=== PATIENT | male | born 1985 | race Caucasian/White ===

== ENCOUNTER 2019-01-19 11:05 | Inpatient (IN) ==
[2019-01-19] MEDS ORDERED: MAALOX PLUS LIQUID PO PRN (14:49)
[2019-01-19] MEDS ORDERED: SINEMET 25/100 PO PRN (14:49)
[2019-01-19] MEDS ORDERED: TUBERSOL ID ONE (14:49)
[2019-01-19] MEDS ORDERED: TYLENOL PO PRN (14:49)
[2019-01-19] MEDS ORDERED: SENOKOT PO PRN (14:49)
[2019-01-19] MEDS ORDERED: PHENOBARBITAL IV PRN (14:49)
[2019-01-19] MEDS ORDERED: IMODIUM PO PRN (14:49)
[2019-01-19] MEDS ORDERED: DULCOLAX PR PRN (14:49)
[2019-01-19] MEDS ORDERED: D5W 1,000 ML IV PRN (14:49)
[2019-01-19 15:26] LABS: HEMATOCRIT 49.8 % (42.0-52.0); HEMOGLOBIN 16.2 g/dL (14.0-18.0); MCH 27.5 PG (27-31); MCHC 32.5 g/dL (33-37); MCV 84.6 FL (81-99); MPV 10.6 FL (7.4-10.4); RBC 5.89 XMIL (4.7-6.1); RDW 14.6 % (11.5-14.5)
[2019-01-19 15:30] LABS: URINE SOURCE VOIDED
[2019-01-19 15:40] LABS: AMYLASE 62 U/L (20-200); LIPASE 20 U/L (13-60)
[2019-01-19 15:41] LABS: INR 1.03
[2019-01-19 15:43] LABS: AGAP 13; ALKALINE PHOSPHATASE 95 U/L (32-122); BUN 11 mg/dL (8-22); CALCIUM 10.5 mg/dL (8.8-10.2); CHLORIDE 99 mmol/L (98-107); COSMO 276; CREATININE 0.8 mg/dL (0.7-1.2); ESTIMATED GFR > 60; GLUCOSE 115 mg/dL (70-104); GOT 20 U/L (10-34); GPT 46 U/L (10-44); POTASSIUM 4.8 mmol/L (3.5-5.1); SODIUM 138 mmol/L (136-145); TCO2 26 mmol/L (25-35); TOTAL PROTEIN 9.1 g/dL (6.3-8.3)
[2019-01-19] MEDS: ZOFRAN IV PRN (15:50)
[2019-01-19 15:57] LABS: BILIRUBIN URINE NEGATIVE (NEGATIVE); BLOOD URINE NEGATIVE (NEGATIVE); CLARITY CLEAR (CLEAR); COLOR YELLOW; GLUCOSE URINE NEGATIVE (NEGATIVE); KETONE URINE TRACE mg/dL (NEGATIVE); LEUKOCYTES URINE TRACE (NEGATIVE); NITRITE URINE NEGATIVE (NEGATIVE); PROTEIN URINE TRACE mg/dL (NEGATIVE); UR AMPHETAMINES QUAL NONE DETECTED (NONE DETECT); UR BARBITUATES QUAL NONE DETECTED (NONE DETECT); UR BENZODIAZEPIN QUAL NONE DETECTED (NONE DETECT); UR CANNABINOIDS QUAL NONE DETECTED (NONE DETECT); UR COCAINE QUAL NONE DETECTED (NONE DETECT); UR METHADONE QUAL NONE DETECTED (NONE DETECT); UR METHAMPHETAMINE QUAL PRESUMPTIVE POSITIVE (NONE DETECT); UR OPIATES QUAL PRESUMPTIVE POSITIVE (NONE DETECT); UR OXYCODONE QUAL NONE DETECTED (NONE DETECT); UR PCP QUAL NONE DETECTED (NONE DETECT); UR PROPOXYPHENE QUAL NONE DETECTED (NONE DETECT); UR TCA QUAL NONE DETECTED (NONE DETECT); UROBILINOGEN URINE 1 mg/dL
[2019-01-19 16:01] LABS: URINE BACTERIA 1+ /HFP; URINE WBC <10 /HPF (<10)
[2019-01-19 16:02] LABS: URINE CAST NONE SEEN /LPF; URINE CRYSTAL NONE SEEN /HPF; URINE EPITHELIAL CELLS <10 /HPF (<10); URINE YEAST NONE SEEN /HPF
[2019-01-19] MEDS: NICODERM PATCH TD PRN (16:02)
[2019-01-19] MEDS: LIBRIUM PO PRN (16:02)
[2019-01-19] MEDS: ROBAXIN PO PRN ×2 (16:02→23:47)
[2019-01-19] MEDS: MOTRIN PO PRN (16:02)
[2019-01-19] MEDS: ATARAX PO PRN ×2 (18:04→23:48)
[2019-01-19] MEDS: BENTYL PO PRN (18:04)
[2019-01-19] MEDS: DESYREL PO PRN (20:16)
[2019-01-19] MEDS: ZOFRAN ODT PO PRN (20:16)
[2019-01-19] MEDS: SEROQUEL PO PRN (23:48)
[2019-01-20] MEDS: PROTONIX PO SCH (06:54)
[2019-01-20] MEDS: THERA M PLUS PO SCH (09:16)
[2019-01-20] MEDS: VITAMIN B-1 PO SCH (09:16)
[2019-01-20] MEDS: FOLIC ACID PO SCH (09:16)
[2019-01-20] MEDS: MOTRIN PO PRN (09:24)
[2019-01-20] MEDS: ZOFRAN ODT PO PRN ×2 (09:24→21:00)
[2019-01-20] MEDS: LIBRIUM PO PRN (09:24)
[2019-01-20] MEDS: ZOFRAN IV PRN ×2 (09:51→15:05)
--- NOTE | 2019-01-20 11:54 | PROGRESS NOTE ---
DATE: 01/20/2019 SUBJECTIVE: Patient notes overall he is feeling a little bit better. States he wants to continue trying to wean off everything and go to further inpatient treatment if possible. PHYSICAL EXAMINATION: Vital Signs: Reviewed. Temperature 97.9 degrees, pulse 94, respiratory rate 18, blood pressure 121/86. General: Patient is in no current respiratory distress. HEENT: Normocephalic. Neck: Supple. Cardiovascular: Regular rate. Chest: Clear. Abdomen: Soft. Extremities: Moves all extremities. Neurologic: No changes. ASSESSMENT: 1. Nausea, vomiting, abdominal pain. 2. Myalgias. 3. Paresthesias. 4. Paroxysmal sweating. 5. Opiate abuse withdrawal and stabilization. PLAN: We will continue to attempt to wean off of all substances so that he can go to further inpatient treatment. We will continue on Librium taper. Further orders as needed. Continue counseling. cc: Stuart Magallon MD
--- NOTE | 2019-01-20 12:31 | HISTORY AND PHYSICAL ---
CHIEF COMPLAINT: Nausea and vomiting. HISTORY OF PRESENT ILLNESS: The patient is a 33-year-old male who presented to [facility] secondary to nausea, vomiting, abdominal pain, and myalgias. States he has been using and abusing opiates. He wants to get his life back under control. States opiates have created relationship problems as well as financial and work problems. He has not been able to work the past 2 years. SOCIAL HISTORY: Patient is single. He is currently unemployed. Lives at home in [place]. PAST MEDICAL HISTORY: Untreated hepatitis C, multiple back surgeries, which is where his opiate use and abuse started. He has chronic anxiety and depression. MEDICATIONS: He is not currently on any medications. ALLERGIES: He has no known drug allergies. REVIEW OF SYSTEMS: CINA score is elevated at 15 secondary to nausea, frequent yawning, abdominal pain, cramping, and frequent diarrhea. He has had vomiting. He has had muscle aches with intermittent sweating, and has been moderately restless, fidgety, and anxious. He is unable to sit still. He has had paresthesias. Denies any headaches or blurred vision. Denies any focalized numbness, tingling, or weakness in his extremities. Denies any dysuria, frequency, or urgency. Denies any skin rashes, weight loss or weight gain. SUBSTANCE ABUSE HISTORY: The patient has been in treatment at [facility] for 2 weeks, and then went to [facility] in 2017 outpatient, and remained sober for a year and a half. He started alcohol at 21, currently rarely drinks. Tried marijuana at 16, rarely uses; used daily in high school. Started stimulants in his 20s, rarely uses those. Started hallucinogens in his 20s as well as inhalants, has not used since. Started opiates at 21, currently uses IV heroin frequently. FAMILY HISTORY: Noncontributory. PHYSICAL EXAMINATION: VITAL SIGNS: Reviewed. GENERAL: Patient is awake and alert. Currently, in no respiratory distress. HEENT: Normocephalic. NECK: Supple. CARDIOVASCULAR: Regular rate. CHEST: Clear. ABDOMEN: Soft and nondistended. EXTREMITIES: Moves all extremities. NEUROLOGIC: Patient is awake and alert. He is fidgety, anxious, and unable sit still and frequently moving about. LABORATORY: Labs are pending. ASSESSMENT: 1. Nausea and vomiting. 2. Abdominal pain. 3. Myalgias. 4. Paresthesias. 5. Paroxysmal sweating. 6. Paresthesias. 7. Opiate abuse withdrawal and stabilization. 8. History of hepatitis C. PLAN: We are going to admit the patient to the hospital, and place him on Librium taper. We will continue counseling. Hopefully, he can transition to further inpatient treatment. cc: Stuart Magallon MD
[2019-01-20] MEDS: LIBRIUM PO SCH ×3 (15:03→21:00)
[2019-01-20] MEDS: NICODERM PATCH TD PRN (16:01)
[2019-01-20] MEDS: SEROQUEL PO PRN (21:00)
[2019-01-20] MEDS: ROBAXIN PO PRN (21:00)
[2019-01-20] MEDS: ATARAX PO PRN (21:00)
[2019-01-21] MEDS: LIBRIUM PO SCH ×3 (03:10→17:03)
[2019-01-21] MEDS: PROTONIX PO SCH ×2 (05:59→10:27)
[2019-01-21] MEDS: ZOFRAN ODT PO PRN ×2 (10:25→16:41)
[2019-01-21] MEDS: FOLIC ACID PO SCH (10:26)
[2019-01-21] MEDS: THERA M PLUS PO SCH (10:26)
[2019-01-21] MEDS: VITAMIN B-1 PO SCH (10:26)
[2019-01-21] MEDS: ATARAX PO PRN (12:22)
--- NOTE | 2019-01-21 18:17 | PROGRESS NOTE ---
DATE: 01/21/2019 SUBJECTIVE: Patient notes that he is feeling okay. Denies any fevers. Denies any chills. OBJECTIVE: Temperature 98.7, pulse 89, respiratory rate 18, BP 137/83.General: Patient is awake, currently in no respiratory distress. HEENT: Normocephalic. Neck: Supple. Cardiovascular: Regular rate. No murmurs. Chest: Clear. Abdomen: Soft. Extremities: Moves all extremities. Neurologic: No changes. ASSESSMENT: 1. Nausea, vomiting. 2. Abdominal pain. 3. Myalgias. 4. Paresthesias. 5. Paroxysmal sweating. 6. Opiate abuse, withdrawal, and continued stabilization. PLAN: We will continue patient in the hospital, continue symptomatic treatment. We will wean Librium as tolerated. Hopefully, he can transition to rehab soon. cc: Stuart Magallon MD
[2019-01-21] MEDS: BENTYL PO PRN (20:55)
[2019-01-21] MEDS: SEROQUEL PO PRN (20:55)
[2019-01-21] MEDS: ROBAXIN PO PRN (20:55)
[2019-01-22] MEDS: LIBRIUM PO SCH ×3 (03:30→21:44)
[2019-01-22] MEDS: PROTONIX PO SCH (06:52)
[2019-01-22] MEDS: THERA M PLUS PO SCH (08:37)
[2019-01-22] MEDS: VITAMIN B-1 PO SCH (08:37)
[2019-01-22] MEDS: ZOFRAN ODT PO PRN ×2 (08:37→15:28)
[2019-01-22] MEDS: ATARAX PO PRN ×2 (08:37→18:47)
[2019-01-22] MEDS: NICODERM PATCH TD PRN ×2 (08:37→17:33)
[2019-01-22] MEDS: FOLIC ACID PO SCH (08:37)
--- NOTE | 2019-01-22 12:31 | PROGRESS NOTE ---
DATE: 01/22/2019 SUBJECTIVE: Patient notes that he is feeling tremendously better this morning. Denies any fevers, chills. States he is starting to eat better. PHYSICAL EXAMINATION: Vital Signs: Reviewed. General: He is awake, alert. He is in no respiratory distress. HEENT: Normocephalic. Neck: Supple. Cardiovascular: Regular rate. Chest: Clear. Abdomen: Soft. Extremities: Moves all extremities better. No changes. Neurologic: The patient is awake, alert, oriented. He is sitting up in the bed eating lunch, talking to his mom. ASSESSMENT: 1. Nausea and vomiting. 2. Abdominal pain. 3. paresthesias. 4. Paroxysmal sweating. 5. Polysubstance abuse and withdrawal and stabilization. PLAN: We are going to continue the patient in the hospital. Awaiting further inpatient treatment. Hopefully can have a bed over the next day or two. We are going to continue symptomatic care. I am going to decrease his Librium and will follow. cc: Stuart Magallon MD MTDD
[2019-01-22] MEDS: ROBAXIN PO PRN (21:44)
[2019-01-22] MEDS: BENTYL PO PRN (21:44)
[2019-01-22] MEDS: SEROQUEL PO PRN (21:44)
[2019-01-22] MEDS: MOTRIN PO PRN (21:44)
[2019-01-22] MEDS: DESYREL PO PRN (23:41)
[2019-01-23] MEDS: PROTONIX PO SCH (06:51)
[2019-01-23] MEDS: VITAMIN B-1 PO SCH (08:38)
[2019-01-23] MEDS: THERA M PLUS PO SCH (08:38)
[2019-01-23] MEDS: FOLIC ACID PO SCH (08:38)
[2019-01-23] MEDS: LIBRIUM PO SCH (08:38)
[2019-01-23 11:59] VITALS: BP 117/68
--- NOTE | 2019-01-24 10:54 | DISCHARGE SUMMARY ---
ADMISSION DATE: 01/19/2019 DISCHARGE DATE: 01/23/2019 DISCHARGE DIAGNOSES: 1. Nausea and vomiting. 2. Abdominal pain. 3. Myalgias. 4. Paresthesias. 5. Paroxysmal sweating. 6. Opiate abuse, withdrawal and stabilization. 7. Chronic anxiety and depression. CONSULTATIONS: None. PROCEDURES: None. BRIEF HOSPITAL COURSE: The patient is a 33-year-old male who presented to [facility] secondary to nausea, vomiting, abdominal pain, myalgias, paresthesias. He had been abusing and overusing opiates. He was admitted and placed on Librium, continued to wean down. On discharge he is awake, alert. He is in no distress. Overall he is feeling better. DISPOSITION: Patient will be discharged home. He is out of withdrawal symptoms at this point. He is stabilized. He is going to be discharged home with his mom, hopefully to be able to go to rehab in the morning. Discussed with patient that he needs to avoid all persons, places, and situations which he has been using and abusing in the past. He needs outpatient life counseling as well as drug counseling. cc: Stuart Magallon MD
== END 2019-01-23 15:12 | disposition home or self-care (01) | DRG 897 ==
LOC: P.DIRADM 13:39 → P.MEDSURG 14:07
PROVIDERS: ADMIT Family Medicine; ATTEND Family Medicine